=== PATIENT | male | born 1960 | race African-American/Black ===

== ENCOUNTER 2016-07-21 23:10 | Emergency (ER) | payer OTHER ==
[~2016-07-21] VITALS: Ht 175.3 cm; Wt 74.8 kg
[~2016-07-21 23:10] MED LIST: ALLOPURINOL 10100 M1 PO; COZAAR 25 MG TA25 MG PO; CRESTOR10 MG PO; ELOCON15 G1 TP; FLOMAX0.4 MG PO; LANTUS100 UNIT/M SUBQ; LC-445 GM TP; NOVOLOG100 UNIT/1 SUBQ; PROSCAR 5MG TABL5 MG PO
[2016-07-22] MEDS ORDERED: NORCO 5-325 TA1 EACH PO (00:21)
[2016-07-22 00:29] VITALS: BP 120/82
== END 2016-07-22 00:29 | disposition home or self-care (01) ==
LOC: ER 23:10
DX: S29.012A Strain of muscle and tendon of back wall of thorax, initial encounter (principal); E11.9 Type 2 diabetes mellitus without complications; I10 Essential (primary) hypertension; M19.90 Unspecified osteoarthritis, unspecified site; J45.909 Unspecified asthma, uncomplicated; G47.39 Other sleep apnea; F12.10 Cannabis abuse, uncomplicated; Z88.8 Allergy status to other drugs, medicaments and biological substances; X58.XXXA Exposure to other specified factors, initial encounter; Y93.89 Activity, other specified; Y92.89 Other specified places as the place of occurrence of the external cause; Y99.8 Other external cause status

== ENCOUNTER 2016-08-03 23:36 | Inpatient (IN) | payer OTHER ==
[~2016-08-03] VITALS: Ht 175.3 cm; Wt 74.8 kg
--- NOTE | ~2016-08-03 | 2DMMODE ---
[facility] [place] [address] 2 D/M-MODE ECHOCARDIOGRAM Name: KIRSTIN STEPHENS Room #: 216-P [facility]#: [id number] Admission: 08/04/16 Attend Phys: Jaun Jonas MD Discharge: Date of : 56 Date of Service: 08/04/16 0841 Report #: [id number] THIS REPORT FOR: //name// Transthoracic Echocardiography Ordering physician: Jihan Burk Referring physician: Piyush Cotto Kate E. Finish Sander: MIKO Gamez Indications/History: CAD, HTN, DM. BP: 113 / HR: 51bpm Height: 69in Weight: 162.7lb 77 Study data: M-mode, complete 2D, complete spectral Doppler, and color Doppler. Location: Echo laboratory. Routine. Image quality was good. 2D measurements Normal Normal LVID ED 42.5mm 36-57 IVS ED 16.1mm 6-11 LVID ES 25.4mm 23-40 LVPW ED 15.4mm 6-11 LA volume 27ml/m2 16-28 AoRoot diam 31.5mm 21-37 index ED LVOT diameter 21mm 18-23 Findings: Left ventricle: The cavity size was normal. Wall thickness was increased in a pattern of moderate LVH. Systolic function was normal. Septal predominance to the hypertrophy raisingpossibility of a hypertrophic, non-obstructive cardiomyopathy. The estimated ejection fraction was in the range of 50% to 55%. Wall motion was normal. Right ventricle: The cavity size was normal. Systolic function was normal. Right atrium: The atrium was normal in size. Left atrium: The atrium was normal in size. Volume index: 27ml/m2 (S). Aortic valve: Trileaflet. Doppler: There was no [facility] [address] [place] [address] 2 D/M-MODE ECHOCARDIOGRAM Name: KIRSTIN STEPHENS Room #: 216-P [facility] [place]#: [id number] Admission: 08/04/16 Attend Phys: Jaun Jonas MD Discharge: Date of : 56 Date of Service: 08/04/16 0841 Report #: [id number] stenosis. No regurgitation. Peak velocity: 129.5cm/s (S). Mitral valve: Structurally normal valve. Doppler: There was no evidence for stenosis. No regurgitation. Peak E-wave velocity: 72.9cm/s. Peak gradient: 2.1mm Hg (D). Peak A-wave velocity: 55.6cm/s. Tricuspid valve: Structurally normal valve. Doppler: There was no evidence for stenosis. Trivial regurgitation. Pulmonic valve: Structurally normal valve. Doppler: There was no evidence for stenosis. No regurgitation. Pericardium: There was no pericardial effusion. Aorta: Aortic root: The aortic root was normal in size. Pulmonary artery: Pressure could not be reliably determined due to minimal or absent tricuspid insufficiency jet, but pulmonary hypertension was not suggested. Diastolic function: Features are consistent with a pseudonormal left ventricular filling pattern, with concomitant abnormal relaxation and increased filling pressure (grade 2 diastolic dysfunction). Systemic veins: Inferior vena cava: The vessel was normal in size; the respirophasic diameter changes were in the normal range (= 50%). Conclusions 1. Left ventricle: The cavity size was normal. Wall thickness was increased in a pattern of moderate LVH. Systolic function was normal. Septal predominance to the hypertrophy raisingpossibility of a hypertrophic, non-obstructive cardiomyopathy. The estimated ejection fraction was in the range of 50% to 55%. Wall motion was normal. 2. Aortic valve: Trileaflet. There was no stenosis. No regurgitation. 3. Mitral valve: Structurally normal valve. No regurgitation. 4. Pericardium, extracardiac: There was no pericardial effusion. <ELECTRONICALLY SIGNED> By: Devaughn Adorno MD, [facility] 08/04/16 1011 0841 1011 Devaughn Adorno MD, [facility] /zuleyma
--- NOTE | ~2016-08-03 | HC ---
[facility] [place] [address] [address] [place] [address] CONSULTATION Name: KIRSTIN STEPHENS Room #: 216-P [facility] ..#: [id number] Admission: 08/04/16 Attend Phys: Jaun Jonas MD Discharge: Date of : 56 Report #: [id number] THIS REPORT FOR: //name// CC: Jaun Cotto DATE OF SERVICE: 08/04/2016 DATE OF SERVICE: 08/04/2016. REASON FOR CONSULTATION: Chest pain. HISTORY OF PRESENT ILLNESS: This is a very pleasant 56-year-old gentleman who underwent aortocoronary bypass grafting in 2008. This is due to a left main stenosis and underwent a bypass x 2. Upon questioning, the patient had noted progressive fatigability and progressive shortness of breath, slowly since last seen January or December. He recently over the last several weeks is accelerated to the point of feeling very tired and very fatigued with activity. He states that on the day of admission, he was eating and developed perfused diaphoresis and shortness of breath. He has had some nausea, which is exactly the symptoms that he had prior to his bypass. In addition to this, he had a little bit of discomfort, substernally. Upon questioning, he did note that his heart was racing at that time, which he has not had previously. He denied any recent fever, chills or any type of pulmonary or respiratory issues recently. He does have significant risk factors of hypercholesterolemia, hypertension, diabetes, family history. He has no dependent or nondependent edema. He has not had any fever or chills. PAST MEDICAL HISTORY: Significant 1. Hypertension. 2. disease. 3. Asthma. 4. Diabetes mellitus. 5. Sleep apnea syndrome, for which he uses CPAP. 6. Recent history of H. pylori. ALLERGIES: ATORVASTATIN, WHICH CAUSES MUSCLE ENZYME ELEVATION. PAST SURGICAL HISTORY: Significant for aortofemoral bypass grafting x 2. MEDICATIONS: At home are [place], Flomax, NovoLog, Lantus, Crestor, Zyloprim, Proscar. SOCIAL HISTORY: The patient is a former smoker, does not consume alcohol. Does not follow a particular dietary restriction. Does not follow a particular exercise regimen. [facility] [address] [place] [address] CONSULTATION Name: KIRSTIN STEPHENS Room #: 216-[facility] IN .R.#: [id number] Admission: 08/04/16 Attend Phys: Jaun Jonas MD Discharge: Date of : 56 Report #: [id number] ELECTROCARDIOGRAM: Normal sinus rhythm, nonspecific ST-T wave changes. Bradycardiac rate. LABORATORY DATA: Demonstrates a potassium of 3.6. BUN and creatinine are 17 and 1.1. Troponin x 1 is less than 0.04. H and H is 13.1, 39.0 and with a platelet count 216,000. RADIOLOGIC: Chest x-ray failed to demonstrate any acute processes. REVIEW OF SYSTEMS: Except for symptoms previously mentioned and those commensurate with comorbid states, the 10 point review of system is negative. PHYSICAL EXAMINATION: GENERAL: Well-developed, well-nourished male, resting comfortably in no acute distress. VITAL SIGNS: Noted and reviewed in the chart. HEENT: Normocephalic, atraumatic. Pupils are equal, round, reactive to light and accommodation. Extraocular muscles are intact. Sclerae and conjunctivae are anicteric. NECK: JVD is normal. Carotid upstrokes are bilaterally symmetrical. No bruits are heard. No thyromegaly. No lymphadenopathy. LUNGS: Clear to auscultation. No wheezes, rhonchi or crackles. No CVA tenderness. CARDIAC: Demonstrates a regular rhythm. Normal first and second heart sounds. No ventricular or atrial gallops, no rubs noted. No murmurs. No lifts or heaves, PMI normal. ABDOMEN: Soft, nontender, nondistended. Normal bowel sounds. EXTREMITIES: Without cyanosis, clubbing or edema. Distal pulses are intact. DTR symmetrical. NEUROLOGIC: Cranial nerves 2-12 are grossly normal and symmetrical. PSYCHIATRIC: Alert, oriented with normal affect. SKIN: Warm and dry. IMPRESSION: 1. Chest discomfort for diaphoresis, nausea, very similar to his symptoms prior to his bypass. The additional progressional fatigue and tiredness over the last [facility] [address] [place] [address] CONSULTATION Name: KIRSTIN STEPHENS Room #: 216-P [facility] M.R.#: [id number] Admission: 08/04/16 Attend Phys: Jaun Jonas MD Discharge: Date of : 56 Report #: [id number] months accelerating over the last several weeks has also quite concerning. Apparently had a lesion in the vessel at the time of bypass, which was present, but was not tight enough for revascularization and in view of this, the question is whether a perfusion scan would be of any use. He had a perfusion scan 6 months ago prior to the symptoms worsening, which was negative. In view of this and review of his presentation, it is reasonable to proceed directly angiography. The risks, complications and alternatives to cath, angioplasty and conscious sedation discussed with the patient. He voices understanding and wishes to proceed. 2. Diabetes mellitus as per primary care. 3. Dyslipidemia. Discussed [employer] step 1 diet with him. We want to see what lipid profile shows to see where he is on target. 4. Hypertension. Blood pressure seems to be low, which is according to him unusual. This may be a factor with his events and may be a something that signifies possible LV dysfunction that is transient etc. Either way, we need to monitor closely. He is getting some fluids. We will check echocardiogram to make sure that he does not have any significant left ventricular dysfunction. <ELECTRONICALLY SIGNED> By: Nathan Thomas MD 08/05/16 1152 2150 0635 Nathan Thomas MD /nt
--- NOTE | ~2016-08-03 | H ---
[facility] [place] [address] [place] [address] HISTORY AND PHYSICAL Name: KIRSTIN STEPHENS Room #: 216-P [facility] IN M.R.#: [id number] Admission: 08/04/16 Attend Phys: Jaun Jonas MD Discharge: 08/07/16 Date of : 56 Report #: [id number] THIS REPORT FOR: //name// CC: Jaun Cotto DATE OF ADMISSION: 08/03/2016 ATTENDING PHYSICIAN: Prince Canela MD PRIMARY CARE PHYSICIAN: Piyush Cotto DO CHIEF COMPLAINT: Near-syncope. HISTORY OF PRESENT ILLNESS: The patient is a 56-year-old -[place] male who says he has not been feeling that well for the last few days. He has been having some shortness of breath with some cough and congestion. He has been using some Mucinex at home. Occasionally, he will produce some greenish-colored sputum. This evening, while eating, he broke out into a sweat and his shortness of breath worsened. He did have nausea and felt like his heart was racing. He actually states that he has been having nausea and poor appetite for the last 6 months and he has lost at least 72 pounds. He has been followed by his primary care physician. At one point, he was set up for gallbladder scans and he was told it was all negative. He has not been having any vomiting or diarrhea. When this evening's episode occurred, he did break out into a perfuse sweat and he was told by family that he was pale. He denies any chest pain with this. He is currently resting comfortably. He says his symptoms resolved in the ER. PAST MEDICAL HISTORY: Hypertension, diabetes, hyperlipidemia, arthritis, obstructive sleep apnea, coronary artery disease. PAST SURGICAL HISTORY: CABG x 2, 3 cervical neck surgeries, shoulder x 2, lysis of adhesions in the abdomen, rectal cyst removal, umbilical hernia repair, bilateral carpal tunnel release. ALLERGIES: LIPITOR causes muscle weakness and pain. HOME MEDICATIONS: Flomax 0.8 mg daily, lovastatin 10 mg daily, hydrocodone 5/325 one tab q. 6 hours p.r.n., NovoLog insulin 22 units t.i.d., Lantus insulin 20 units at bedtime, lidocaine cream daily, Proscar 5 mg daily and allopurinol 100 mg daily. FAMILY HISTORY: His father had coronary artery disease with a prior CABG. His mother is alive with dementia and diabetes. SOCIAL HISTORY: The patient lives with his daughter. He ambulates with a cane. He is an ex-smoker, having quit 10 years ago after smoking for about [address] [place] [address] HISTORY AND PHYSICAL Name: KIRSTIN STEPHENS Room #: 216-P [facility] IN M.R.#: [id number] Admission: 08/04/16 Attend Phys: Jaun Jonas MD Discharge: 08/07/16 Date of : 56 Report #: [id number] up to a pack per day. Denies any alcohol use. He does smoke marijuana occasionally. Has an appetite stimulant. 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 He was told it was negative. All other 12-point review of systems was reviewed with the patient, otherwise negative unless stated in the HPI. PHYSICAL EXAMINATION: GENERAL: The patient is an alert male, in no acute distress. VITAL SIGNS: Temperature is 36.4, heart rate 58, respirations ____, blood pressure is 92/57, oxygen 100% on room air. HEENT: PERRLA. Sclerae are nonicteric. Oral mucosa is pink and moist. NECK: Supple. No JVD noted. CARDIAC: Normal S1, S2 with a 3/6 systolic ejection murmur. RESPIRATORY: Breath sounds are clear, bilateral upper lobes, diminished in both bases. Breathing is nonlabored. ABDOMEN: Soft, nontender, nondistended with positive bowel sounds. VASCULAR: No edema noted. Pedal pulses are 2+. NEUROLOGIC: The patient is alert and oriented x 3. Speech is clear. He is answering questions appropriately and following commands. No focal weakness noted. I did not see him ambulate. LABORATORY AND DIAGNOSTIC DATA: WBC is 10.3, hemoglobin 13.1, platelets 216. INR 1.2. D-dimer is 0.42. Sodium 141, potassium 3.6, BUN 17, creatinine 1.1, glucose 210. Magnesium 1.7. LFTs are within normal limits. Cardiac enzymes are negative. BNP 49. Lipase 145. Alcohol level less than 10 and EKG showing sinus rhythm, probable left atrial enlargement, abnormal T waves, consider ischemia in the anterolateral leads. Influenza is negative and chest x-ray showed postsurgical changes in the cervical spine and mediastinum consistent with prior cervical spine fusion and prior CABG; mild scarring is present in the lung bases without pneumonia, pneumothorax or pleural effusion and mild chronic air trapping is present. ASSESSMENT AND PLAN: 1. Near-syncope. This may have been due to orthostatic hypotension as the patient's blood pressure was low on arrival. We will continue to monitor on telemetry to make sure there was not any arrhythmias. We will check an echocardiogram in the morning. 2. Diabetes. Continue home insulin regimen and add sliding scale insulin. 3. Hypotension. The patient is normally hypertensive. He is not on any current medications to hold; we will gently hydrate. 4. Possible bronchitis. The patient does have a loose cough. He is afebrile without leukocytosis. We will continue with supportive care. 5. Hypomagnesemia. Replace and repeat labs. 6. Recent weight loss and nausea. The patient has been evaluated outpatient [facility] [address] [place] [address] HISTORY AND PHYSICAL Name: KATKIRSTIN Room #: 216-P [facility] IN M.R.#: [id number] Admission: 08/04/16 Attend Phys: Jaun Jonas MD Discharge: 08/07/16 Date of : 56 Report #: [id number] and says they still do not know what is causing this. Continue with supportive care. 7. Deep venous thrombosis prophylaxis, place sequential compression devices. We will continue to follow the patient closely throughout the hospitalization and make changes based on clinical status. <ELECTRONICALLY SIGNED> By: AZAEL Garrett 08/17/16 0456 0606 0758 AZAEL Garrett /nt
--- NOTE | ~2016-08-03 | CATHLAB ---
[facility] [place] [address] INVASIVE PROCEDURE REPORT Name: KIRSTIN STEPHENS Room #: 216-P [facility].#: [id number] Admission: 08/04/16 Attend Phys: Jaun oJnas MD Discharge: 08/07/16 Date of : 56 Date of Service: 08/05/16 1616 Report #: [id number] THIS REPORT FOR: //name// CC: Jaun Cotto DATE OF SERVICE: 08/05/2016 DATE OF SERVICE: 08/05/2016. INDICATIONS: A 56-year-old male patient with known coronary artery disease, status post aortocoronary bypass grafting with exertional dyspnea, fatigue as anginal equivalent. PROCEDURES: 1. Left heart catheterization. 2. Selective left and right coronary angiography. 3. Selective angiography of saphenous vein graft to the left circumflex and left internal mammary artery to the left anterior descending artery. 4. Measurement of left ventricular end diastolic pressures. 5. Supervision of conscious sedation. [employer] ARCHITECT: Nathan Thomas M.D. BRIEF DESCRIPTION OF PROCEDURE: After informed consent was obtained, the patient was brought to the cardiac catheterization laboratory in stable condition. The patient's right groin was prepped and draped in the usual sterile manner after which lidocaine was then instilled. Utilizing a modified Seldinger technique, the right femoral artery was then accessed. Under fluoroscopic visualization using selective coronary catheters, the right and left coronaries were opacified and visualized. The left ventriculogram was likewise imaged per standard protocol with EDP being measured. Subsequent to this, the sheath was removed, hemostasis achieved. The patient tolerated the procedure well. There were no complications. Following angiography of the right coronary ostium, there was a standard right diagnostic was then advanced and engaged with the ostium of the saphenous vein graft to the left circumflex which has been imaging in oblique and angulated projections. The same catheter was then brought forth and engaged with the left subclavian artery and advanced. Engagement of the internal mammary ostium was unable to be performed, and an exchange wire was then used, and a left internal mammary artery catheter utilized for imaging. The left internal mammary and mid and distal LAD were then imaged in oblique and angulated projections. FINDINGS: 1. FLUOROSCOPY: There is evidence of median sternotomy with sternal wires in place with surgical clips present. There is moderate calcification of the [facility] [address] [place] [address] INVASIVE PROCEDURE REPORT Name: KIRSTIN STEPHENS Room #: 216-P [facility] IN M.R.#: [id number] Admission: 08/04/16 Attend Phys: Jaun Jonas MD Discharge: 08/07/16 Date of : 56 Date of Service: 08/05/16 1616 Report #: [id number] epicardial coronary arteries, and no calcific plaquing on the valvular intramyocardial structure of the heart. 2. HEMODYNAMICS: A. Aortic pressure 162/82. B. Left ventricular end diastolic pressure is 30-36. 3. ANGIOGRAPHY: This is a right coronary dominant system. A. The left main is totally occluded in its distal portion. B. Left anterior descending is imaged via the internal mammary graft and demonstrates a proximal retrograde filling of the first diagonal branch that has a moderate ostial lesion. Beyond the anastomosis of the STEFANIE involving the distal third of the vessel, it becomes a string terminating at the bifurcating vessel at its apex of the heart. C. Left circumflex is a moderate caliber vessel visualized via saphenous vein graft to a marginal branch. The anastomosis is excellent with only mild 30% irregularities noted proximally in the graft. The circumflex itself has marginal branches, which have the following. i. First marginal branch, the luminal irregularities and it is the anastomotic vessel. ii. Second marginal has a proximal 40% lesion and reconstitutes continues on the lateral aspect of the ventricle without high-grade disease. iii. The distal circumflex with 2 posterior wall branches which are small and tapering with only irregularities of less than 50% identified. D. Right coronary artery is a moderate caliber vessel, which has multiple regions of stenosis. In the proximal portion, there is a region of 50% stenosis, which then is followed by dilatation and a more moderate sized RCA. The acute marginal branch arises and has sequential blockages ranging from 50% to 90%. The RCA continues posteriorly giving rise to a small posterior wall circulation, posterior descending artery, all of which are quite small and diminished in size with regions ranging from 60% to 90% focal and diffuse stenosis. E. Left internal mammary graft is widely patent and anastomosis into the mid LAD. The LAD proper described above. F. Saphenous vein graft to the left circumflex is moderate to large caliber, has a plaque of less than 30%, then 2 valves are identified as above. The circumflex was then visualized as stated above. IMPRESSION: 1. Coronary artery disease, significant, status post bypass, with distal left anterior descending having subtotal high grade diffuse disease, and the right distal circulation and marginal branch circulation having a very minimum moderate to significant disease in diminutive vessels. 2. HEMODYNAMICS: Abnormal hemodynamics with elevated left ventricular end-diastolic pressures and an elevated systolic blood pressure. [facility] [address] [place] [address] INVASIVE PROCEDURE REPORT Name: KIRSTIN STEPHENS Room #: 216-P [facility] IN M.R.#: [id number] Admission: 08/04/16 Attend Phys: Jaun Jonas MD Discharge: 08/07/16 Date of : 56 Date of Service: 08/05/161615 Report #: [id number] RECOMMENDATIONS: In view of the absence of any lesions with reasonable long-term success, optimize of his medical management is recommended. <ELECTRONICALLY SIGNED> By: Nathan Thomas MD 08/16/16 1836 1616 232 Nathan Thomas MD /nt
--- NOTE | ~2016-08-03 | EKG ---
[address] [address] ELECTROCARDIOGRAM REPORT Name: KIRSTIN STEPHENS Room #: 216-P [facility] IN M.R.#: [id number] Admission: 08/04/16 Attend Phys: Prince Canela MD Discharge: Date of : 56 Report #: [id number] THIS REPORT FOR: //name// 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
[~2016-08-03 23:36] MED LIST changes: +NORCO 5-325 TA1 EACH PO
[2016-08-03 23:37] VITALS: BP 92/57
[2016-08-03] MEDS ORDERED: PROSCAR 5MG TABL5 MG PO (23:54)
[2016-08-04] VITALS (9 sets, daily range): BP systolic 95–121; BP diastolic 43–77
[2016-08-04 00:27] LABS: ABSOLUTE NEUTROPHILS 6.5 thou/uL (1.4-8.2); BASOPHILS 0.6 % (0.0-2.0); EOSINOPHILS 1.7 % (0.0-3.0); HEMOGLOBIN 13.1 gm/dL (14.0-18.0); LYMPHOCYTES 30.1 % (24.0-44.0); MCH 32.8 pg (26.0-34.0); MCHC 33.6 % (28.0-37.0); MCV 97.7 fL (80.0-100.0); MONOCYTES 4.6 % (1.0-8.0); PLATELET COUNT 216 thou/uL (150-400); RDW 12.3 % (10.5-14.5); WBC 10.3 thou/uL (4.0-11.0)
[2016-08-04 00:39] LABS: APTT 23.4 Seconds (24.5-32.8); INR 1.2; PROTIME 12.3 Seconds (9.3-11.4)
[2016-08-04 00:43] LABS: MANUAL DIFF NO
[2016-08-04 00:48] LABS: ANION GAP 13 mmol/L (7-16); BUN 17 mg/dL (7-18); CHLORIDE 102 mmol/L (98-107); CO2 26 mmol/L (21-32); CREATININE 1.1 mg/dL (0.6-1.3); GLUCOSE 210 mg/dL (70-99); POTASSIUM 3.6 mmol/L (3.5-5.1); SODIUM 141 mmol/L (136-145)
[2016-08-04 01:06] LABS: ALBUMIN 3.6 g/dL (3.4-5.0); ALKALINE PHOSPHATASE 89 U/L (46-116); CK-MB MASS 1.9 ng/mL (<0.5-3.6); MAGNESIUM 1.7 mg/dL (1.8-2.4); NT-PRO BRAIN NAT PEPTIDE 49 pg/mL (<300); SGOT 11 U/L (15-37); SGPT 23 U/L (30-65); TOTAL BILIRUBIN 0.7 mg/dL (<0.1-1.0); TOTAL PROTEIN 7.3 g/dL (6.4-8.2); TROPONIN-I < 0.04 ng/mL (<0.04-0.07)
[2016-08-04 04:33] LABS: AMP/METHAMP Negative (Negative); BARBITURATES Negative (Negative); BENZODIAZEPINES Negative (Negative); COCAINE Negative (Negative); METHADONE Negative (Negative); OPIATES Negative (Negative); PCP Negative (Negative); THC POSITIVE (Negative)
[2016-08-05] VITALS (10 sets, daily range): BP systolic 96–136; BP diastolic 72–92
[2016-08-05] MEDS ORDERED: GABAPENTIN 100100 MG PO (09:01)
[2016-08-05] MEDS ORDERED: SYMBICORT160 MCG/4. INH (09:02)
[2016-08-06] VITALS (7 sets, daily range): BP systolic 117–158; BP diastolic 72–96
[2016-08-06 03:52] LABS: HEMATOCRIT 34.1 % (42.0-52.0); HEMOGLOBIN 11.6 gm/dL (14.0-18.0); MCH 33.5 pg (26.0-34.0); MCHC 33.9 % (28.0-37.0); MCV 98.6 fL (80.0-100.0); RBC 3.45 mil/uL (4.50-6.00); RDW 12.3 % (10.5-14.5); WBC 9.4 thou/uL (4.0-11.0)
[2016-08-06 04:08] LABS: CALCIUM 8.7 mg/dL (8.5-10.1); CREATININE 0.8 mg/dL (0.6-1.3); POTASSIUM 3.9 mmol/L (3.5-5.1)
[2016-08-07 03:13] VITALS: BP 144/86
[2016-08-07 07:55] VITALS: BP 154/97
[2016-08-07 09:41] LABS: ABSOLUTE NEUTROPHILS 9.3 thou/uL (1.4-8.2); BASOPHILS 0.3 % (0.0-2.0); EOSINOPHILS 0.2 % (0.0-3.0); LYMPHOCYTES 15.2 % (24.0-44.0); MCH 32.5 pg (26.0-34.0); MCHC 33.7 % (28.0-37.0); MCV 96.3 fL (80.0-100.0); MONOCYTES 5.1 % (1.0-8.0); PLATELET COUNT 227 thou/uL (150-400); POLYS 79.2 % (36.0-66.0); RBC 4.25 mil/uL (4.50-6.00); WBC 11.7 thou/uL (4.0-11.0)
[2016-08-07 09:42] LABS: HEMOGLOBIN 13.8 gm/dL (14.0-18.0)
[2016-08-07 09:43] LABS: MANUAL DIFF NO
[2016-08-07 09:57] LABS: ALBUMIN 3.4 g/dL (3.4-5.0); CALCIUM 9.2 mg/dL (8.5-10.1); CREATININE 1.1 mg/dL (0.6-1.3); POTASSIUM 3.7 mmol/L (3.5-5.1); TOTAL BILIRUBIN 0.8 mg/dL (<0.1-1.0); TOTAL PROTEIN 7.4 g/dL (6.4-8.2)
[2016-08-07] MEDS ORDERED: IMDUR 30 MG TAB30 M1 PO (10:38)
[2016-08-07] MEDS ORDERED: METOPROLOL SUCC25 M1 PO (10:39)
[2016-08-07 11:35] VITALS: BP 144/86
[2016-08-08] MEDS ORDERED: ZOFRAN ODT4 MG PO (13:29)
[2016-08-08] MEDS ORDERED: PROMS25 WY RECTAL (13:29)
[2016-08-08] MEDS ORDERED: PHENERGAN 25 MG25 M1 PO (13:29)
== END 2016-08-07 12:43 | disposition home or self-care (01) | DRG 287 ==
LOC: ER 23:36 → 2N 08-04 01:28 → EROBS 08-04 01:28 → 2N 08-04 02:25
PROVIDERS: Emergency Medicine; Hospitalist; Nurse Practitioner Gerontology
PROC: 4A023N7 Measurement of Cardiac Sampling and Pressure, Left Heart, Percutaneous Approach (ICD-10-PCS; principal; 2016-08-04)
PROC: B2111ZZ Fluoroscopy of Multiple Coronary Arteries using Low Osmolar Contrast (ICD-10-PCS; 2016-08-04)
PROC: B2151ZZ Fluoroscopy of Left Heart using Low Osmolar Contrast (ICD-10-PCS; 2016-08-04)
DX: I25.10 Atherosclerotic heart disease of native coronary artery without angina pectoris (principal); I50.30 Unspecified diastolic (congestive) heart failure; M94.0 Chondrocostal junction syndrome [Tietze]; G47.33 Obstructive sleep apnea (adult) (pediatric); E78.5 Hyperlipidemia, unspecified; E11.649 Type 2 diabetes mellitus with hypoglycemia without coma; F12.10 Cannabis abuse, uncomplicated; I11.0 Hypertensive heart disease with heart failure; M19.90 Unspecified osteoarthritis, unspecified site; J45.909 Unspecified asthma, uncomplicated; E83.42 Hypomagnesemia; Z79.899 Other long term (current) drug therapy; Z98.890 Other specified postprocedural states; Z95.1 Presence of aortocoronary bypass graft; Z86.19 Personal history of other infectious and parasitic diseases; Z87.891 Personal history of nicotine dependence; Z88.8 Allergy status to other drugs, medicaments and biological substances; Z82.49 Family history of ischemic heart disease and other diseases of the circulatory system; Z83.3 Family history of diabetes mellitus; Z81.8 Family history of other mental and behavioral disorders; Z23 Encounter for immunization
CPT/HCPCS: 10081

== ENCOUNTER 2016-08-08 11:11 | Emergency (ER) | payer OTHER ==
[~2016-08-08] VITALS: Ht 175.3 cm; Wt 74.8 kg
--- NOTE | ~2016-08-08 | EKG ---
[place] [address] [employer] 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 : 1960 Requested By: Geri Santiago Order Number: [id number] MD: Devaughn Adorno Measurements Intervals [place] Rate: 63 P: 64 [place]: 158 QRS: 50 QRSD: 97 T: 70 QT: 462 QTc: 474 Interpretive Statements Sinus rhythm Probable left atrial enlargement Borderline low voltage, extremity leads Nonspecific T abnrm, anterior leads Compared to ECG 08/04/2016 00:29:07 No significant change was found Electronically Signed On 08-09-2016 8:55:12 CHIEF LOCK TENDER OPERATOR by Devaughn Adorno [email or web address] <ELECTRONICALLY SIGNED> By: Devaughn Adorno MD, [facility] 08/09/16 0855 11 Devaughn Adorno MD, [facility] /EPI
[~2016-08-08 11:11] MED LIST changes: +GABAPENTIN 100100 MG PO; +IMDUR 30 MG TAB30 M1 PO; +METOPROLOL SUCC25 M1 PO; +SYMBICORT160 MCG/4. INH
[2016-08-08 11:46] LABS: ABSOLUTE NEUTROPHILS 7.4 thou/uL (1.4-8.2); BASOPHILS 0.9 % (0.0-2.0); EOSINOPHILS 1.2 % (0.0-3.0); HEMATOCRIT 38.7 % (42.0-52.0); HEMOGLOBIN 13.4 gm/dL (14.0-18.0); LYMPHOCYTES 21.5 % (24.0-44.0); MCH 33.3 pg (26.0-34.0); MCHC 34.6 % (28.0-37.0); PLATELET COUNT 234 thou/uL (150-400); POLYS 70.4 % (36.0-66.0); RBC 4.03 mil/uL (4.50-6.00); RDW 12.3 % (10.5-14.5); WBC 10.4 thou/uL (4.0-11.0)
[2016-08-08 11:47] LABS: MANUAL DIFF NO
[2016-08-08 11:58] LABS: ANION GAP 8 mmol/L (7-16); BUN 19 mg/dL (7-18); CALCIUM 9.3 mg/dL (8.5-10.1); CHLORIDE 101 mmol/L (98-107); CO2 29 mmol/L (21-32); CREATININE 1.1 mg/dL (0.6-1.3); GLUCOSE 178 mg/dL (70-99); POTASSIUM 3.8 mmol/L (3.5-5.1); SODIUM 138 mmol/L (136-145)
[2016-08-08 12:07] LABS: TROPONIN-I < 0.04 ng/mL (<0.04-0.07)
[2016-08-08] MEDS ORDERED: ZOFRAN ODT4 MG PO (13:29)
[2016-08-08] MEDS ORDERED: PROMS25 WY RECTAL (13:29)
[2016-08-08] MEDS ORDERED: PHENERGAN 25 MG25 M1 PO (13:29)
== END 2016-08-08 13:57 | disposition home or self-care (01) ==
LOC: ER 11:11
PROVIDERS: Emergency Medicine
DX: R10.9 Unspecified abdominal pain (principal); R11.2 Nausea with vomiting, unspecified; R07.9 Chest pain, unspecified; E11.9 Type 2 diabetes mellitus without complications; I10 Essential (primary) hypertension; M19.90 Unspecified osteoarthritis, unspecified site; J45.909 Unspecified asthma, uncomplicated; G47.39 Other sleep apnea; F15.21 Other stimulant dependence, in remission; Z88.8 Allergy status to other drugs, medicaments and biological substances; Z87.891 Personal history of nicotine dependence